=== PATIENT | female | born 1950 | race Caucasian/White ===

== ENCOUNTER 2023-04-10 09:25 | Emergency (ER) | payer MEDICARE, SELFPAY ==
[2023-04-10 09:31] VITALS: BP 176/87; PULSE 83; RESP 15; TEMP 36.2; O2SAT 99; BMI 37.8
--- NOTE | 2023-04-10 09:32 | DI.RAD.S_ITS ---
PROCEDURE: XR WRIST LT MIN 3V INDICATIONS: pain after fall TECHNIQUE: 4 views of the wrist were acquired. COMPARISON: None. FINDINGS: Bones: No acute fractures or dislocations. No suspicious bony lesions. Severe polyarticular degenerative changes of the left wrist most pronounced in the 1st carpometacarpal joint and triscaphe joint. Scaphoid view: Scaphoid appears intact. Scapholunate interval is maintained. Soft tissues: No suspicious soft tissue calcifications. Mild soft tissue swelling of the left breast. IMPRESSION: Mild left wrist soft tissue swelling. No definite underlying fracture identified. Severe osteoarthritic changes of the left 1st carpometacarpal joint and triscaphe joint. If there is persistent clinical concern for occult fracture given adequate mechanism of injury, consider repeat imaging in 10-14 days. Dictated by: Manuel Rose M.D. on 04/10/2023 at 10:16 Approved by: Manuel Rose M.D. on 04/10/2023 at 10:18
--- NOTE | 2023-04-10 09:32 | DI.RAD.S_ITS ---
PROCEDURE: XR SHOULDER LT MIN 2V INDICATIONS: pain after fall TECHNIQUE: 3 views of the shoulder were acquired. COMPARISON: None. FINDINGS: Bones: Fracture through the greater tuberosity of the humerus. Soft tissues: No suspicious soft tissue calcifications. IMPRESSION: Extra-articular fracture of the greater tuberosity of the humerus. Dictated by: Bull Astorga M.D. on 04/10/2023 at 10:08 Approved by: Bull Astorga M.D. on 04/10/2023 at 10:08
--- NOTE | 2023-04-10 09:33 | ED_ITS ---
HPI - General Adult General Chief complaint: Extremity Injury, Upper Stated complaint: fell hurt wrist and shoulder left px3 Time Seen by Provider: 04/10/23 09:27 Source: patient Mode of arrival: Ambulatory Limitations: no limitations History of Present Illness HPI narrative: Patient is a 72-year-old female who is here for evaluation of a left wrist and left shoulder injury. The event occurred a couple days ago. She slipped and fell while on a cruise. She does have her left wrist wrapped with a Coban. No other injuries from the event. Related Data Allergies Allergy/AdvReac Type Severity Reaction Status Date / Time Penicillins Allergy Verified 04/10/23 09:31 Review of Systems Constitutional Constitutional: Reports system reviewed and no additional complaints, except as documented Musculoskeletal Musculoskeletal: Reports system reviewed and no additional complaints, except as documented Integumentary/Breasts Skin/Breast: Reports system reviewed and no additional complaints, except as documented Neurologic Neurologic: Reports system reviewed and no additional complaints, except as documented Patient History Social History Smoking Status: Unknown if ever smoked Exam Initial Vital Signs Initial Vital Signs: Vital Signs Temperature 97.1 F L 04/10/23 09:31 Pulse Rate 83 04/10/23 09:31 Respiratory Rate 15 04/10/23 09:31 Blood Pressure 176/87 H 04/10/23 09:31 Pulse Oximetry 99 04/10/23 09:31 Oxygen Delivery Method Room Air 04/10/23 09:31 Const General: cooperative and comfortable HENMT Head: normal to inspection Cardio Pulses: radial pulses present on the left Skin General: no rashes or lesions noted Neuro Sensory Exam: no sensory deficits noted Extrem Other: Patient has a significantly swollen left hand most likely because the Coban was too tight. She is difficulty moving her left wrist and also pronation and supination. She also has difficulty abducting hand forward flexing and extendi ng left shoulder. Procedures Orthopedic Splinting/Casting Injury #1: Side: left Upper Extremity Injury Location: shoulder Upper Extremity Immobilizer: sling/shoulder immobilizer Post splinting neuro exam: intact Post splinting vascular exam: intact Placed by: Nursing Injury #2: Side: left Upper Extremity Injury Location: wrist Post splinting neuro exam: intact Post splinting vascular exam: intact Placed by: Nursing Course Orders Ordered: ED Orders 04/10/23 09:32 XR shoulder LT min 2V Stat XR wrist LT min 3V Stat Vital Signs Vital signs: Vital Signs - 8 hr 04/10/23 09:31 Temperature 97.1 F L Pulse Rate 83 Respiratory Rate 15 Blood Pressure 176/87 H Pulse Oximetry 99 Oxygen Delivery Method Room Air Medical Decision Making Imaging Data Extremity x-ray #1: Radiologist's Impression: PROCEDURE:? XR SHOULDER LT MIN 2V ? INDICATIONS:? pain after fall ? TECHNIQUE:? 3 views of the shoulder were acquired.? ? COMPARISON:? None. ? FINDINGS:? ? Bones:? Fracture through the greater tuberosity of the humerus. ? Soft tissues:? No suspicious soft tissue calcifications.? ? IMPRESSION:? Extra-articular fracture of the greater tuberosity of the humerus. Extremity x-ray #2: Radiologist's Impression: PROCEDURE:? XR WRIST LT MIN 3V ? INDICATIONS: pain after fall ? TECHNIQUE:? 4 views of the wrist were acquired.? ? COMPARISON:? None. ? FINDINGS:? ? Bones:? No acute fractures or dislocations.? No suspicious bony lesions.? Severe polyarticular degenerative changes of the left wrist most pronounced in the 1st carpometacarpal joint and triscaphe joint. ? Scaphoid view:? Scaphoid appears intact. Scapholunate interval is maintained. ? Soft tissues:? No suspicious soft tissue calcifications.? Mild soft tissue swelling of the left breast. ? IMPRESSION:? Mild left wrist soft tissue swelling.? No definite underlying fracture identified. Severe osteoarthritic changes of the left 1st carpometacarpal joint and triscaphe joint. ? If there is persistent clinical concern for occult fracture given adequate mechanism of injury, consider repeat imaging in 10-14 days. [facility] Narrative Medical decision making narrative: Patient is neurovascularly intact. X-rays do show a left-sided greater tuberosity proximal humerus fracture. Her left wrist is unremarkable. The swelling most likely from the tight Coban has actually improved with her left hand. She was placed in a wrist splint for her comfort. She was also placed in a shoulder sling. She states her pain is fairly well controlled with ibuprofen. Will discharge patient home with a copy of her x-rays on a CD when she returns home will follow-up with orthopedic surgery and also her primary doctor. Discharge Plan Departure Patient Disposition: Home Clinical Impression: Fracture of greater tuberosity of left humerus, Left wrist sprain Instructions: How to Use a Sling, How To Perform RICE (Rest, Ice, Compress, Elevate) Activity Restrictions/Additional Instructions: The wrist splint is for your comfort. You can take it off to shower. This is the same with regard to the sling. You can take it off to shower and to dress. It is important that when you return home he follow-up with an orthopedic doctor and also your primary doctor as your going to need physical therapy for your shoulder. Stand Alone Forms: Patient Portal/API
== END 2023-04-10 10:31 | disposition home or self-care (01) ==
PROVIDERS: Emergency Provider Emergency Medicine
DX: S42.252A Displaced fracture of greater tuberosity of left humerus, initial encounter for closed fracture (principal); S63.502A Unspecified sprain of left wrist, initial encounter; W01.0XXA Fall on same level from slipping, tripping and stumbling without subsequent striking against object, initial encounter
CPT/HCPCS: 73030; 73110; 99283; 99284